=== PATIENT | male | born 1980 | race Caucasian/White ===

== ENCOUNTER 2016-11-12 13:05 | Emergency (ER) | payer BC ==
[~2016-11-12] VITALS: Ht 182.9 cm; Wt 104.8 kg
[~2016-11-12 13:05] MED LIST: ACIDOPHILUS1 CTB PO; ASPIR-LOW81 MG PO; ATIVAN0.5 MG PO; AZITHROMYCIN250 MG PO; CETIRIZINE HCL10 MG PO; CLINDAMYCIN HC150 MG PO; DONNATAL E16.2 MG/5 PO; FLONASE 50 MCG16 GM; GLIPIZIDE10 MG PO; HYDROCODONE PO; JARDIANCE25 MG PO; LANTUS INS100 UNITS/ SC; LEVAQUIN500 MG PO; LIPITOR20 MG PO; LISINOPRIL/HYDR1 TAB PO; LISINOPRIL40 MG PO; LOVAZA1 GM PO; METFORMIN1000 MG PO; MOTRIN800 MG PO; OMEPRAZOLE40 MG PO; PHENERGAN 25MG.25 MG PR; PHENERGAN25 M3 PO; PREDNISONE5 MG PO; PROVENTIL0.09 MG/A1 IH; TANZEUM30 MG SC; TOUJEO300 U/ML SC; TRICOR 145 MG145 MG NG; ZOFRAN4 MG PO; [UNRECOGNIZED DRUG - OTHER] PO
[2016-11-12] MEDS ORDERED: TRICOR145 M1 PO (13:15)
[2016-11-12] MEDS ORDERED: LIPITOR20 MG PO (13:15)
[2016-11-12] MEDS ORDERED: JARDIANCE25 MG PO (13:16)
[2016-11-12] MEDS ORDERED: LOVAZA1 GM PO (13:16)
--- NOTE | 2016-11-12 13:18 | Emergency Room Report ---
History of Present Illness Time Seen by [id number] Presenting Problem in Triage Pt arrived:Walked Presenting Problem:PT REPORTS L FLANK PAIN THAT BEGAN 3 DAYS AGO, PT REPORTS SPASMING TYPE PAIN, FEVER, FREQUENT URINATION. 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 Y Clinical Suspician of Infection? N Mental Status: 1 - Regular (Normal Baseline) Sepsis Risk:Low Sepsis Risk Have you (or family members/close friends) recently traveled outside the [place]? N If Yes, where/when: Have you had exposure to infectious disease within the past month? N TB? Other? Specify: Source patient, RN notes reviewed, family, old records Exam Limitations no limitations Comment sent from clinic for abd pain with nausea with hx of pancreatitis with sphinter of bryce issues- has iddm also - no chest pain Cardiac Chest Pain Chest pain indicative of cardiac No Timing/Duration this evening Severity moderate ALLERGIES Coded Allergies: Penicillins (09/23/16) Home Medications Reported Medications INSULIN GLARGINE,HUM.REC.ANLOG (Toujeo Solostar) 120 UNITS SC DAILY Aspirin (Aspir-Low) 81 MG PO DAILY Lisinopril (Lisinopril 40MG) 40 MG PO DAILY CETIRIZINE HCL (Cetirizine 10MG) 10 MG PO DAILY Fluticasone Propionate (Flonase 50 Mcg Nasal [place]) 1 SPRAY NA BID Atorvastatin Calcium (Lipitor 20MG) 20 MG PO QHS FENOFIBRATE NANOCRYSTALLIZED (Tricor) 145 MG PO QHS OMEGA-3 ACID ETHYL ESTERS (Lovaza) 1 GM PO BID Empagliflozin (Jardiance) 25 MG PO DAILY History Medical History General CAD? No Angina: No PA: No Hypertension? Yes Hyperlipidemia? Yes CHF? No DVT? No PE? No COPD? No Asthma? No Anemia? No GERD? Yes Gastric ulcers? No GI Bleed? No Hernia? No Thyroid Problems? No Hypothyroidism? No CVA? No Seizures? No Diabetes? Yes Insulin Dependent: Yes Insulin Pump: No Home FSBS? Yes Renal Insuffiency? No End Stage Renal Disease? No UTI? No Stones? No BPH? No GB Disease: No Nephritic Syndrome? No Asplenia? No Hepatitis? No Sickle Cell Disease? No Arthritis? No Migraines? No Cataracts? No Glaucoma? No MRSA? No HIV? No TB? No Anxiety? No Depression? No Cancer? No More? Yes Additional hx: PANCREATITIS Immunization Hx DT/Tetanus Unknown Pneumonia Refuses Surgical Hx Previous Surgery?Y REPAIRED KNEE X2 ERCP Family History Family Hx Diabetes Yes CAD Yes Hypertension No Hyperlipidemia Yes Cancer Yes TB No Social History Smoking Hx Smoker: Never Smoker Tobacco: No Packs/day N/A Alcohol Alcohol: No Drugs none Review of Systems All Other Systems Reviewed and Negative Constitutional denies fever Eyes denies drainage ENT denies: ear discharge, epistaxis. Respiratory denies cough, denies shortness of breath Cardiovascular denies chest pain, denies syncope Gastrointestinal see HPI, abdominal pain, denies diarrhea, nausea, vomiting Genitourinary denies: dysuria, frequency, hesitancy, hematuria. Musculoskeletal denies back pain, denies joint pain, denies joint swelling, denies neck pain Skin denies rash Psychiatric/Neurological denies headache, denies seizure Physical Exam Vital Signs Vital Signs Date Time Temp Pulse Resp B/P Pulse O2 O2 Flow FiO2 Ox Delivery Rate 11/12 1520 89 18 129/69 97 11/12 1519 18 11/12 1453 96 18 132/71 97 11/12 1329 18 11/12 1308 98.1 96 20 160/113 96 - WBC >12,000 or <4,000 or 10% bands? 2 or more SIRS Criteria Met? B/P:129/69 MAP:128 Creatinine >2.0? UA output<0.5ml/kg/hr for 2 hrs? Platelet count >100,000? Lactate >2.0mmol/1? INR >1.2 or PTT > than 60 sec? Evidence of Organ Dysfunction? Provider documented clinical suspician of infection? N Sepsis Criteria Count: 2 Sepsis Risk: Low Sepsis Risk General Appearance no apparent distress Eye Exam - bilateral eye PERRL, bilateral eye EOMI Ear, Nose, Throat normal ENT inspection Neck supple Respiratory Status No: respiratory distress. Lung Sounds bilateral: lungs clear. 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 No Results/Orders Laboratory Tests 11/12/16 1315: Sodium 127 L, Potassium , Chloride 93 L, Carbon Dioxide 15 L, BUN 5 L, Creatinine 0.6 L, Estimated Creat Clear 250 H, Estimated GFR (MDRD) 152, Glucose 274 H, Calcium 8.0 L, Total Bilirubin 1.5 H, AST 44.4 H, ALT 19.2, Alkaline Phosphatase 111.6, Total Protein 7.56, Albumin 3.1 L, Globulin 4.46 H , Albumin/Globulin Ratio 0.7 L, Amylase 86, Lipase 708 H, WBC 17.1 H, RBC 5.01, Hgb 16.6, Hct 43.4, MCV 86.6, RDW 14.4, Plt Count 324, MPV 7.6, Gran % 80.1 H, Gran # 13.7 H, Total Counted 100, Lymphocytes % 14.1, Monocytes % 2.8, Eosinophils % 2.4, Basophils % 0.7, Neutrophils 80 H, Lymphocytes (Manual) 16, Lymphocytes # 2.4, Monocytes (Manual) 3, Monocytes # 0.5, Eosinophils # 0.4, Eosinophils # (Manual) 1, Basophils # 0.1, Platelet Estimate NORMAL, PUBS MCHC 38.4 H, MCH 33.2 H, Urine Color YELLOW, Urine Appearance CLEAR, Urine pH 6.0, Ur Specific [place] 1.015, Urine Protein 1+ H, Urine Ketones 2+ H, Urine Blood 1+ H, Urine Nitrate NEGATIVE, Urine Bilirubin NEGATIVE, Urine Urobilinogen 0.2, Ur Leukocyte Esterase NEGATIVE, Urine RBC 3-5, Urine WBC OCC, Ur Squamous Epith Cells OCC, Urine Bacteria 1+, Urine Glucose 3+ H Current Medication Orders Sig/Joey Start time Last Medication Dose Route Stop Time Status Admin Lorazepam 0 .STK-MED ONE 11/12 1516 DC .ROUTE Lorazepam 1 MG ONCE ONE 11/12 1515 DC 11/12 IV 11/13 1515 1519 Sodium Chloride 1,000 ML .Q4H 11/12 1445 AC 11/12 IV 11/12 1844 1443 Sodium Chloride 10 ML PRN PRN 11/12 1445 AC IV 11/13 1438 Sodium Chloride 1,000 ML .STK-MED ONE 11/12 1441 DC IV Ketorolac 30 MG ONCE ONE 11/12 1330 DC 11/12 Tromethamine IV 11/12 1331 1329 Sodium Chloride 10 ML PRN PRN 11/12 1330 AC IV 11/13 1318 Ketorolac 0 .STK-MED ONE 11/12 1328 DC Tromethamine .ROUTE Orders Procedure Date/time Status DIET-NOTHING BY MOUTH 11/[address] SCAN REQ 11/12 1319 Complete IV SALINE LOCK 11/12 1319 Active URINALYSIS/COMPLETE 11/12 1319 Complete LIPASE 11/12 1319 Complete COMPLETE METABOLIC PANEL 11/12 1319 Complete CBC WITH AUTO DIFF 11/12 1319 Complete AMYLASE 11/12 1319 Complete DIFFERENTIAL-WBC 11/12 1315 Complete XRAY/CT/US XRAY/CT/US CT abdomen, pelvis CT interpretation by discussed w/radiologist Time results known: 1539 CT Results abnormal (pancreatitis) Departure Departure Time of Disposition 1534 Disposition DC Home or Self Care(routine) Clinical Impression Primary Impression: Pancreatitis Qualifiers: Chronicity: acute Pancreatitis type: unspecified pancreatitis type Acute pancreatitis complication: unspecified Qualified Code: K85.90 - Acute pancreatitis without necrosis or infection, unspecified Secondary Impressions: IDDM (insulin dependent diabetes mellitus) Condition STABLE Referrals [facility] discussed with estrella Patient Instructions DI for Pancreatitis Additional Instructions see pcp and gi for follow up and recheck if needed Discharge Counseling Counseled pt/family regarding diagnosis, test results, medications/RX, follow up needs Prescriptions Current Visit Scripts Lorazepam (Ativan 0.5MG) 0.5 MG PO TIDP PRN pancreatitis #10 TAB ED Critical Care Critical Care No Comments pt will give trial at home at 1538
[2016-11-12 13:30] LABS: LYMPH # 2.4 K/mm3 (0.7-4.5); LYMPH % 14.1 % (10-50)
[2016-11-12 13:37] LABS: HEMOGLOBIN 16.6 g/dL (14.1-18.0)
[2016-11-12 13:39] LABS: URINE BLOOD 1+ (NEG)
[2016-11-12 14:03] LABS: URINE BILIRUBIN - DIPSTICK NEGATIVE (NEG)
[2016-11-12 14:08] LABS: NEUTROPHILS 80 % (42-76)
[2016-11-12 14:16] LABS: URINE SQUAMOUS CELLS OCC #/hpf (OCC)
--- NOTE | 2016-11-12 14:30 | RADIOLOGY REPORT PS360 ---
CT ABD PELVIS W/O CONTRAST CLINICAL INDICATION: Left flank pain FLANK PAIN ORDERING PHYSICIAN: Arcelia Saenz MD PATIENT AGE: 36 years COMPARISON: 09/23/2016 TECHNIQUE: Axial images obtained with sagittal and coronal reformats. PROCEDURE: Oral Contrast: None IV Contrast: None . FINDINGS: Lung bases show no acute finding. Nonspecific 4 mm nodular opacity is present within the lingula. Pericardium is mildly thickened anteriorly at 9 mm somewhat more so than when compared to the previous exam There is diffuse hepatic steatosis with hepatosplenomegaly. Liver measures up to 28 cm diagonally at the upper aspect of the liver and spleen measures up to 14 cm. The adrenal glands and gallbladder have an unremarkable unenhanced CT appearance. There is moderate stranding of the peripancreatic fat in the region of the pancreatic tail and left upper quadrant along hilum of the spleen. There is mild thickening of the anterior pararenal fascia on the left as well as the left lateral conal fascia. These findings may be seen with pancreatitis. There is mild blurring of the definition of the pancreatic tail. Mildly dilated small bowel loops are present in the left upper quadrant adjacent to this area of inflammation probably related to local ileus. No pancreatic gas evident. No renal calculi or hydronephrosis. No evidence of appendicitis or diverticulitis. No acute bony anomalies. IMPRESSION: 1. The findings are consistent with pancreatitis with peripancreatic inflammatory change and effusions. 2. Hepatosplenomegaly with diffuse fatty liver. 3. Thickened pericardium suggesting small pericardial effusion
[2016-11-12] MEDS ORDERED: ATIVAN0.5 MG PO (15:36)
[2016-11-12 15:52] VITALS: BP 129/69
== END 2016-11-12 15:52 | disposition home or self-care (01) ==
LOC: ER 13:05
PROVIDERS: Emergency Medicine
DX: K85.90 Acute pancreatitis without necrosis or infection, unspecified (principal); I10 Essential (primary) hypertension; K21.9 Gastro-esophageal reflux disease without esophagitis; E11.65 Type 2 diabetes mellitus with hyperglycemia

== ENCOUNTER → 2017-02-06 | Outpatient (CLI) | payer BC ==
[~2017-02-06] MED LIST changes: +TRICOR145 M1 PO
--- NOTE | 2017-02-06 13:25 | CARDIOVASCULAR REPORT ---
"Venous Exam Indications: 729.5 Pain in limb. IMPRESSIONS Mild, medium-sized, acute superficial vein thrombosis involving thecephalic vein of the left upper extremity History: Left upper extremity pain. Redness in the left upper extremity. Risk factors: Diabetes mellitus. Recent trauma. Patient was hospitalized 2 weeks ago with an IV in left antecubital. February 01 the patient noticed the left upper extremity was red, swollen, and sore on the medial aspect of antecubital region. Pain has progressively gotten worse with pain extending in to distal wrist today. Left upper extremity venous duplex. Doppler flow study including spectral analysis, color and ly scale imaging. Location: Vascular laboratory. Patient status: Outpatient. CRITICAL FINDINGS - Reported to: Cheryle Garza Vice - Read back and verified. - 02/06/17 - 13:00 - SVT in LUE cephalic vein Tables: Venous flow and imaging: + + + |Location |Flow properties | + + + |Left internal jugular|Normal phasicity; spontaneous; compressible | + + + |Left subclavian |Normal phasicity; spontaneous; normal | | |augmentation; compressible | + + + |Left axillary |Normal phasicity; spontaneous; normal | | |augmentation; compressible | + + + |Left brachial |Normal phasicity; spontaneous; normal | | |augmentation; compressible | + + + |Left cephalic |Absent; not spontaneous; no augmentation; | | |noncompressible | + + + |Left basilic |Normal phasicity; spontaneous ; normal | | |augmentation; compressible | + + + |Left radial |Compressible | + + + |Left ulnar |Compressible | + + + (Report amended ) Electronically signed by: Roberto Tyler [id number]"
== END ==
LOC: RT 12:27
DX: M79.602 Pain in left arm (principal); R22.30 Localized swelling, mass and lump, unspecified upper limb